=== PATIENT | male | born 1960 | race African-American/Black ===

== ENCOUNTER 2020-09-02 21:22 | Emergency (ER) | payer SELFPAY ==
[~2020-09-02] VITALS: Ht 185.4 cm; Wt 81.8 kg
[2020-09-02] MEDS ORDERED: DEXAMETHASONE SOD PHOS 4 MG/ML VIAL IVP ONE (23:45)
[2020-09-02] MEDS ORDERED: IV NORMAL SALINE 1000ML BAG 1,000 ML IV SCH (23:45)
[2020-09-02] MEDS ORDERED: diphenhydrAMINE HCL 25 MG CAPSULE PO ONE (23:45)
[2020-09-02] MEDS ORDERED: PROCHLORPERAZINE 10 MG/2 ML VIAL. IV ONE (23:45)
[2020-09-02 23:58] LABS: BASO # 0.1 x10^3/uL (0.0-0.2); BASO % 1 % (0-3); EOS # 0.2 x10^3/uL (0.0-0.7); EOS % 2 % (0-3); HEMATOCRIT 37.1 % (39.0-53.0); HEMOGLOBIN 11.9 g/dL (13.0-17.5); LYMPH # 2.2 x10^3/uL (1.0-4.8); LYMPH % 27 % (24-48); MEAN CORPUSCULAR HEMOGLOBIN 22 pg (25-35); MEAN CORPUSCULAR HGB CONC 32 g/dL (31-37); MEAN CORPUSCULAR VOLUME 69 fL (79-100); MONO # 0.7 x10^3/uL (0.0-1.1); MONO % 9 % (0-9); NEUT # 5.1 x10^3/uL (1.8-7.7); NEUT % 62 % (31-73); PLATELET COUNT 364 x10^3/uL (140-400); RED BLOOD COUNT 5.37 x10^6/uL (4.30-5.70); RED CELL DISTRIBUTION WIDTH 14.5 % (11.5-14.5); WHITE BLOOD COUNT 8.2 x10^3/uL (4.0-11.0)
--- NOTE | 2020-09-03 00:03 | ED.ADGEN ---
Past Medical History Past Medical History: GERD Past Surgical History: No Surgical History Smoking Status: Never Smoker Alcohol Use: None General Adult EDM: Chief Complaint: GI PROBLEM HPI: HPI: Patient is a 59-year-old male who presents to the emergency room with multiple complaints. Patient has been having reflux with bloating and nausea for the last 6 weeks. He has been taking Nexium with some improvement but continues to have symptoms. A week ago he developed a headache which is abnormal for him. Over the last couple days he has developed a hoarse voice, cough, shortness of breath. He denies any fever or chest pain. Review of Systems: Review of Systems: Complete ROS is negative unless otherwise documented in HPI Current Medications: Current Medications Medications (Trade) Dose Ordered Sig/Jorge Start Time Stop Time Status Last Admin Dose Admin Dexamethasone Sodium Phosphate (Decadron) 10 mg 1X ONCE 09/02/20 23:45 09/02/20 23:46 DC 09/03/20 00:02 10 MG Diphenhydramine HCl (Benadryl) 25 mg 1X ONCE 09/02/20 23:45 09/02/20 23:46 DC 09/03/20 00:02 25 MG Multi-Ingredient Mouthwash/Gargle (Gi Cocktail) 20 ml 1X ONCE 09/03/20 00:30 09/03/20 00:31 DC 09/03/20 00:13 20 ML Prochlorperazine Edisylate (Compazine) 10 mg 1X ONCE 09/02/20 23:45 09/02/20 23:46 DC 09/03/20 00:02 10 MG Sodium Chloride 1,000 ml @ 30 mls/hr Q24H 09/02/20 23:45 09/03/20 02:19 DC 09/03/20 00:02 30 MLS/HR Allergies: Allergies: Allergies Coded Allergies Type Severity Reaction Last Updated Verified No Known Drug Allergies 09/02/20 No Physical Exam: PE: General: Awake, alert, NAD. Well Nourished, well hydrated. Cooperative HEENT: Atraumatic, EOMI, PERRL, airway patent, moist oral mucosa Neck: Supple, trachea midline Respiratory: CTA bilaterally, normal effort, no wheezing/crackles CV: RRR, no murmur, cap refill <2 GI: Soft, nondistended, nontender, no masses MSK: No obvious deformities Skin: Warm, dry, intact Neuro: A&O x3, speech NL, sensory and motor grossly intact, no focal deficits Psych: Normal affect, normal mood, not suicidal or homicidal Current Patient Data: Labs: Laboratory Tests Test 09/02/20 23:51 White Blood Count 8.2 x10^3/uL (4.0-11.0) Red Blood Count 5.37 x10^6/uL (4.30-5.70) Hemoglobin 11.9 g/dL (13.0-17.5) L Hematocrit 37.1 % (39.0-53.0) L Mean Corpuscular Volume 69 fL (79-100) L Mean Corpuscular Hemoglobin 22 pg (25-35) L Mean Corpuscular Hemoglobin Concent 32 g/dL (31-37) Red Cell Distribution Width 14.5 % (11.5-14.5) Platelet Count 364 x10^3/uL (140-400) Neutrophils (%) (Auto) 62 % (31-73) Lymphocytes (%) (Auto) 27 % (24-48) Monocytes (%) (Auto) 9 % (0-9) Eosinophils (%) (Auto) 2 % (0-3) Basophils (%) (Auto) 1 % (0-3) Neutrophils # (Auto) 5.1 x10^3/uL (1.8-7.7) Lymphocytes # (Auto) 2.2 x10^3/uL (1.0-4.8) Monocytes # (Auto) 0.7 x10^3/uL (0.0-1.1) Eosinophils # (Auto) 0.2 x10^3/uL (0.0-0.7) Basophils # (Auto) 0.1 x10^3/uL (0.0-0.2) Platelet Estimate Pending Sodium Level 137 mmol/L (136-145) Potassium Level 4.3 mmol/L (3.5-5.1) Chloride Level 100 mmol/L (98-107) Carbon Dioxide Level 29 mmol/L (21-32) Anion Gap 8 (6-14) Blood Urea Nitrogen 10 mg/dL (8-26) Creatinine 0.9 mg/dL (0.7-1.3) Estimated GFR (Cockcroft-Gault) 104.9 BUN/Creatinine Ratio 11 (6-20) Glucose Level 98 mg/dL (70-99) Calcium Level 9.7 mg/dL (8.5-10.1) Total Bilirubin 0.3 mg/dL (0.2-1.0) Aspartate Amino Transferase (AST) 12 U/L (15-37) L Alanine Aminotransferase (ALT) 8 U/L (16-63) L Alkaline Phosphatase 116 U/L (46-116) Lactate Dehydrogenase 261 U/L (85-227) H C-Reactive Protein, Quantitative 19.1 mg/L (0-3.3) H NG-Gxd-S-Type Natriuretic Peptide 9 pg/mL (0-124) Total Protein 8.1 g/dL (6.4-8.2) Albumin 3.3 g/dL (3.4-5.0) L Albumin/Globulin Ratio 0.7 (1.0-1.7) L Lipase 61 U/L (73-393) L Laboratory Tests 09/02/20 23:51 Laboratory Tests 09/02/20 23:51 Vital Signs: Vital Signs Date Time Temp Pulse Resp B/P (MAP) Pulse Ox O2 Delivery O2 Flow Rate FiO2 09/03/20 02:07 80 18 126/64 (84) 97 Room Air 09/02/20 21:51 98.1 98.1 EKG: EKG: [] Heart Score: Risk Factors: Risk Factors: DM, Current or recent (<one month) smoker, HTN, HLP, family history of CAD, obesity. Risk Scores: Score 0 - 3: 2.5% MACE over next 6 weeks - Discharge Home Score 4 - 6: 20.3% MACE over next 6 weeks - Admit for Clinical Observation Score 7 - 10: 72.7% MACE over next 6 weeks - Early Invasive Strategies Radiology/Procedures: Radiology/Procedures: [] Course & Med Decision Making: Course & Med Decision Making Pertinent Labs and Imaging studies reviewed. (See chart for details) Patient is 59-year-old male who presents to the emergency room with multiple complaints. It is possible that the hoarse voice, cough, sore throat could be related to severe reflux. We will treat him with a GI cocktail. Headache will be treated with migraine cocktail. Will do an evaluation for coronavirus 19. Patient does appear to have a right-sided pneumonia and will be treated with antibiotics. GI cocktail significantly improved patient's GI symptoms. We will place him on Carafate for a month. At this time patient is stable and feeling significantly better. We discussed quarantining. Patient's test results and vitals while in the ED were fully reviewed and discussed with the patient. Patient is stable and at this time does not need admission to the hospital. We have discussed strict return precautions and the importance of following up with their Primary Care Physician. Patient stated understanding and was given an opportunity to ask any questions. Patient is in agreement with plan. [place] Disclaimer: Carmita Disclaimer: This electronic medical record was generated, in whole or in part, using a voice recognition dictation system. Departure Departure Impression: Primary Impression: Headache Additional Impressions: GERD (gastroesophageal reflux disease) Pneumonia Disposition: 01 DC HOME SELF CARE/HOMELESS Condition: STABLE Referrals: NO PCP (PCP) Patient Instructions: Diet for Gastroesophageal Reflux Disease, Adult, Easy -to-Read, Gastroesophageal Reflux Disease, Adult, Pneumonia, Adult Additional Instructions: Thank you for visiting [facility]. We appreciate you trusting us with your care. If any additional problems come up please don't hesitate to return to visit us. Follow up with your primary care provider so they can plan additional care if needed and know about the problem that you had today. If symptoms worsen come back to the Emergency Department. Any concerning symptoms that start such as chest pain, shortness of air, weakness or numbness on one side of the body, running high fevers or any other concerning symptoms return to the ER. You have a viral syndrome which may include symptoms like muscle aches, fevers, chills, runny nose, cough, sneezing, sore throat, nausea, vomiting, or diarrhea. One of the potential viruses that you may have is SARS-CoV-2, the virus that causes COVID-19, also known as the Coronavirus. You are just as likely to have a different viral infection such as the common cold, flu, etc. Most patients with the Coronavirus have mild symptoms and recover on their own. Resting, staying hydrated, and sleep based on known cases can be helpful. As of todays visit, you are well enough to go home and treat your symptoms with oral fluids and over the counter medications. Coronavirus testing is not performed on most people with mild symptoms who are being discharged from the emergency department. If Coronavirus testing was performed today the results will not be available for possibly up to 3-4 days. If your result is positive you will be contacted. Please follow the following precautions at home: 1. Stay home except to get medical care. 2. As advised by the CDC, we recommend that you stay in your home and minimize contact with other people. We do not want you to spread the infection. 3. Those who are older or have significant medical issues may have more severe symptoms from this infection. We recommend self-isolation FOR AT LEAST 7 DAYS after your 1st day of symptoms. AFTER you feel better please wait AT LEAST ANOT HER WEEK before returning to regular activities and being around other people. 4. IF you become sicker and have difficulty breathing, chest pain, are unable to eat/drink, severe vomiting, diarrhea, or weakness you may need to return to the Emergency Department. 5. You should restrict activities outside of your home, except for getting medical care. DO NOT go to work, school, or public areas. Avoid using public transportation, ride sharing, or taxis. 6. Separate yourself from other people in your home. You should use a separate bathroom if possible. 7. Avoid sharing personal household items such as dishes, cups, eating utensils, towels, etc. 8. Clean all high touch surfaces every day (door knobs, counter tops, etc). Use a household cleaning spray or wipe per label instructions. 9. Clean your hands often. Wash your hands with soap and water for at least 20 seconds. 10. Cover your mouth and nose when you cough or sneeze. 11. Throw used tissues in the trash and immediately wash your hands. For additional resources please visit the CDC website or the [facility] ([phone]), you may also call 211 for further information. Scripts Levofloxacin (LEVOFLOXACIN) 500 Mg Tablet 1 TAB PO DAILY, #7 TAB Prov: HOLLI POLANCO MD 09/03/20 Sucralfate (CARAFATE) 1 Gm Tablet 1 TAB PO QID for 30 Days, #120 TAB 0 Refills Prov: HOLLI POLANCO MD 09/03/20 Problem Qualifiers HOLLI POLANCO MD Sep 03, 2020 00:03
[2020-09-03] MEDS ORDERED: LIDO:MAALOX 1:1 20 ML SINGLE DOSE. SWSW ONE (00:30)
[2020-09-03 00:33] LABS: CALCIUM 9.7 mg/dL (8.5-10.1); CREATININE 0.9 mg/dL (0.7-1.3); GFR 104.9; POTASSIUM 4.3 mmol/L (3.5-5.1)
[2020-09-03 00:39] LABS: ALBUMIN 3.3 g/dL (3.4-5.0); ALBUMIN/GLOBULIN RATIO 0.7 (1.0-1.7); C-REACTIVE PROTEIN 19.1 mg/L (0-3.3); TOTAL BILIRUBIN 0.3 mg/dL (0.2-1.0); TOTAL PROTEIN 8.1 g/dL (6.4-8.2)
[2020-09-03] MEDS ORDERED: SUCR1TAB35 PO (01:51)
[2020-09-03] MEDS ORDERED: LEVO500T8 PO (01:51)
[2020-09-03 02:07] VITALS: BP 126/64
[2020-09-03 03:36] LABS: HYPOCHROMIA MOD; MICROCYTOSIS MOD; PLT ESTIMATE ADEQUATE (ADEQUATE)
--- NOTE | 2020-09-03 06:15 | RAD ---
EXAMINATION: CHEST AP ONLY CLINICAL HISTORY: Shortness of breath EXAM DATE/TIME: 09/02/2020 11:10 PM COMPARISON: None FINDINGS: Lines, Tubes, and Devices: None. Cardiomediastinal Silhouette: Within normal limits. Lungs and Pleura: No definitive evidence of focal airspace consolidation or pleural effusion. Mild right hilar fullness may represent confluence of hilar vessels. Bones and Soft Tissues: Mild dextroconvex curvature of the thoracic spine. IMPRESSION: No definitive evidence of acute cardiopulmonary abnormality. Electronically signed by: Seamus Dowling DO (09/03/2020 6:12 AM) LINDSAY
--- NOTE | 2020-09-03 11:47 | EKG ---
[facility] [address] [place] [address] Test Date: 2020-09-02 Test Time: 23:29:02 Pat Name: ADELSO BRANDON Department: Room: Gender: M Obiee Obia Solution Architect: : [id number] Requested By: HOLLI POLANCO Order Number: [id number] Reading MD: Vishal García MD Measurements Intervals [place] Rate: 82 P: 69 IA: 158 QRS: 41 QRSD: 86 T: 61 QT: 350 QTc: 412 Interpretive Statements SINUS RHYTHM Electronically Signed On 09-04-2020 11:03:29 SOFTWARE TEST ENGINEER by Vishal García MD
== END 2020-09-03 02:14 | disposition home or self-care (01) ==
LOC: ER 21:22
DX: K21.9 Gastro-esophageal reflux disease without esophagitis (principal); Z20.828 Contact with and (suspected) exposure to other viral communicable diseases; J18.9 Pneumonia, unspecified organism; R51.9 Headache, unspecified
CPT/HCPCS: 36415; 71045; 80053; 83615; 83690; 83880; 85025; 86140; 93005; 96374; 96375; 99285; J0780; J1100; J7030; Q0163; U0003

== ENCOUNTER → 2020-09-28 | Outpatient (CLI) | payer SELFPAY ==
[2020-09-18 11:00] VITALS: BP 121/70
[~2020-09-28] MED LIST: LEVO500T8 PO; SUCR1TAB35 PO
--- NOTE | 2020-09-28 18:46 | RAD ---
Examination: US OBLETB History: Reason: LUNG ADENCARCINOMA MALIG NEOPLASM ADRENAL GLAND / Spl. Instructions: / History: Comparison/Correlation: CTA chest 09/15/2020 FINDINGS: Net dose 14.17 mCi F-18 FDG was administered intravenously for purposes of PET/CT exam. B lood glucose level at the time of radiotracer administration was 101 mg/dL. Imaging was performed fr om the skull base to the proximal thighs. Hepatic reference uptake is SUV max of 1.9 . Uptake of radiotracer involving the partially visualized head and upper neck is unremarkable at the b ase of the neck bilaterally, there is lymphadenopathy abutting the thyroid lobes with circumferential uptake and central atrophy. SUV max of 2 4 is seen. Confluent lymphadenopathy or mass involving superior mediastinum especially along the right paratrach eal aspect and about the right main bronchus is present. Peripheral uptake is seen with SUV max up to 5.2. Subcarinal lymphadenopathy is present with SUV max of 5.8. Central photopenia is noted. Right l ateral midlung region nodule has SUV max of 5.3. Small region of intense uptake with SUV max of 6. 1 is present involving the lateral aspect of the left pectoralis minor muscle at the axillary level. Th is corresponds to a low-attenuation lesion finding on CT examination measuring up to 2.2 cm diameter. Small focus of uptake involving the left latissimus dorsi with SUV max of 2.4 and is of indeterminat e significance. This is at the upper thoracic level. Right adrenal gland is enlarged with peripheral uptake having SUV max of 7 . Left adrenal gland has i ntense uptake with SUV maximum of 5.8. Small focus of uptake to the right of the celiac artery is pre sent with SUV max of 3.9 and appears to correspond to a small lymph node measuring 0.7 cm diameter. Circumferential uptake within the medial aspect of the right paraspinal musculature at the upper lumb ar spine level is present. Central photopenia is noted. Corresponding low attenuation on CT images no garrison. Peripheral SUV max is 4.8. This finding has a diameter of up to 2.8 cm. Uptake of radiotracer in the pelvis is unremarkable. IMPRESSION: Confluent lymphadenopathy or mass involving the superior mediastinum and right hilum is present. Mult iple foci of peripheral uptake within this process is seen. Significant central photopenia is evident however. Bilateral supraclavicular lymphadenopathy adjacent to the thyroid gland also appears to pre sent with peripheral, circumferential uptake and central photopenia. Intense uptake involving the right lateral midlung nodule concerning for metastatic involvement is pr esent. Uptake involving the adrenal glands compatible with metastatic involvement. Nonenlarged lymph node wi th intense uptake at the celiac artery level of concern for metastatic involvement. There is uptake involving left pectoralis muscle and right upper paralumbar spinal muscle with corres ponding low-attenuation CT of concern for metastatic involvement. PQRS Compliance Statement: One or more of the following individualized dose reduction techniques were utilized for this examinat ion: 1. Automated exposure control 2. Adjustment of the mA and/or kV according to patient size 3. Use of iterative reconstruction technique Electronically signed by: Kenneth Ibarra MD (09/28/2020 6:44 PM) [id number]
== END ==
LOC: PETSC 09:09
PROVIDERS: ATTEND Internal Medicine Hematology & Oncology
DX: C34.01 Malignant neoplasm of right main bronchus (principal)
CPT/HCPCS: 78815; A9552

== ENCOUNTER → 2020-10-09 | Outpatient (CLI) | payer SELFPAY ==
[2020-09-18 11:00] VITALS: BP 121/70
[2020-10-09 11:00] LABS: BASO # 0.1 x10^3/uL (0.0-0.2); BASO % 1 % (0-3); EOS # 0.1 x10^3/uL (0.0-0.7); EOS % 1 % (0-3); HEMOGLOBIN 10.7 g/dL (13.0-17.5); LYMPH # 1.4 x10^3/uL (1.0-4.8); LYMPH % 20 % (24-48); MEAN CORPUSCULAR HEMOGLOBIN 21 pg (25-35); MEAN CORPUSCULAR HGB CONC 31 g/dL (31-37); MEAN CORPUSCULAR VOLUME 68 fL (79-100); MONO # 0.5 x10^3/uL (0.0-1.1); MONO % 7 % (0-9); NEUT % 70 % (31-73); PLATELET COUNT 439 x10^3/uL (140-400); RED BLOOD COUNT 5.03 x10^6/uL (4.30-5.70); RED CELL DISTRIBUTION WIDTH 14.2 % (11.5-14.5); WHITE BLOOD COUNT 7.2 x10^3/uL (4.0-11.0)
[2020-10-09 11:07] LABS: CALCIUM 9.6 mg/dL (8.5-10.1); CREATININE 0.8 mg/dL (0.7-1.3); GFR 119.7
[2020-10-09 11:13] LABS: ALBUMIN/GLOBULIN RATIO 0.6 (1.0-1.7); TOTAL BILIRUBIN 0.3 mg/dL (0.2-1.0); TOTAL PROTEIN 8.1 g/dL (6.4-8.2)
[2020-10-09 12:40] LABS: ANISOCYTOSIS PRESENT; HYPOCHROMIA PRESENT; MICROCYTOSIS PRESENT
[2020-10-09 13:06] LABS: PLT ESTIMATE ADEQUATE (ADEQUATE)
== END ==
LOC: ONCLAB 10:45
PROVIDERS: ATTEND Internal Medicine Hematology & Oncology
DX: C34.01 Malignant neoplasm of right main bronchus (principal); C79.71 Secondary malignant neoplasm of right adrenal gland
CPT/HCPCS: 36415; 80053; 85025